=== PATIENT | female | born 1980 | race Caucasian/White ===

== ENCOUNTER 2019-08-08 16:36 | Emergency (ER) | payer SELFPAY ==
--- NOTE | ~2019-08-08 | CT_ITS ---
EXAMINATION: CT abdomen pelvis wo con DATE: 08/08/2019 22:05 INDICATION: Right flank pain. TECHNIQUE: Computed tomography (CT) of the abdomen and pelvis was performed without intravenous contr ast. Automated exposure control and iterative reconstruction technique were employed. The dose-length product was 1217.23 mGy-cm. COMPARISON: None FINDINGS: Normal dependent atelectasis in the right lower lobe. Heart size is normal. No pericardial or pleural effusion. Prominent calcified gallstone at the fundus of the otherwise normal-appearing gallbladder. Liver, spleen, pancreas, bilateral adrenal glands and kidneys are normal. Bowels including the appen castillo are normal. Bladder, anteverted uterus and bilateral adnexa are normal. Small fat-containing umbi lical hernia. Bones are unremarkable. IMPRESSION: 1. Cholelithiasis. Reviewed, dictated and finalized at location A. [facility] IMPRESSION: 1. Cholelithiasis.
[2019-08-08 17:21] VITALS: BP 143/61; PULSE 92; RESP 18; TEMP 37.3; O2SAT 99
[2019-08-08 17:50] LABS: Basophils Percent Auto 0.3 % (0.2-1.2); Eosinophils Absolute Auto 0.2 K/mm3 (0-0.3); Eosinophils Percent Auto 2.4 % (0-4.4); Hematocrit 39.4 % (37.0-47.0); Hemoglobin 12.7 g/dL (12.0-15.0); Immature Granulocyte Absolute 0.02 K/mm3 (0.00-0.031); Immature Granulocyte Percent A 0.3 % (0-0.5); Lymphocytes Absolute Auto 2.12 K/mm3 (0.9-3.2); Lymphocytes Percent Auto 28.1 % (18.3-44.2); Mean Corpuscular HGB Conc 32.2 g/dl (32-36); Mean Corpuscular Hemoglobin 28.5 pg (26-34); Mean Corpuscular Volume 88.5 fl (80-100); Mean Platelet Volume 11.5 fl (7.4-10.4); Monocytes Absolute Auto 0.6 K/mm3 (0.1-0.6); Monocytes Percent Auto 7.3 % (2.6-8.5); Neutrophils Absolute Auto 4.7 K/mm3 (1.3-6.7); Neutrophils Percent Auto 61.6 % (45.5-73.1); Platelet Count Result 182 k/mm3 (150-375); Red Blood Count 4.45 M/mm3 (4.2-5.4); Red Cell Distribution Width 12.9 % (11.5-14.5); White Blood Count 7.6 K/mm3 (4.5-10.0)
[2019-08-08 18:02] LABS: Add Urine Microscopic? YES; Appearance Urine Cloudy (Clear); Bacteria Urine Trace /hpf; Bilirubin Urine Negative (Negative); Blood Urine Negative (Negative); Color Urine Yellow (Yellow); Glucose Urine UA Negative (Negative); Ketones Urine Negative (Negative); Leukocyte Esterase Ur 2+ LEU/UL (Negative); Nitrate Urine Negative (Negative); Protein Urine Negative (Negative); Specific Grav Ur 1.012 (1.001-1.035); Squamous Epithelial Cell Urine Many /hpf (Few); Urobilinogen Urine Negative mg/dL (<2.0)
[2019-08-08 18:05] LABS: Alanine Aminotransferase 20 U/L (4-35); Albumin Level 4.3 g/dL (3.5-5.1); Alkaline Phosphatase 69 U/L (38-126); Aspartate Amino Transferase 22 U/L (14-36); Bilirubin,Total 0.2 mg/dL (0.2-1.3); Blood Urea Nitrogen 15 mg/dL (7-17); Calcium 9.9 mg/dL (8.4-10.2); Carbon Dioxide 26 mmol/L (22-30); Chloride 106 mmol/L (98-107); Estimated CRCL calculation 102 ml/min; Estimated Glomerular Filt Rate > 60; Glucose 103 mg/dL (65-105); Lipase 101 U/L (23-300); Sodium 141 mmol/L (137-145)
[2019-08-08 19:35] VITALS: BP 118/59; PULSE 76; RESP 12; TEMP 36.9; O2SAT 100
--- NOTE | 2019-08-08 20:23 | ED.ABDPAIN ---
HPI - Abdominal Pain General Chief Complaint: Abdominal Pain Stated Complaint: pelvic/hip pain Time Seen by Provider: 08/08/19 20:21 Source: patient Mode of arrival: ambulatory Limitations: no limitations History of Present Illness HPI narrative: A 39 y/o female presents to the ED with c/o right flank pain that radiates to her right abdomen and RLE. Pt describes the radiation into her stomach as a pulling and the radiation into her leg as a shooting sensation. The right flank pain is aggravated with movement. She notes that 4 days ago she was doing housework and lifting a 200lb toolbox when the right flank pain started. Pt denies fever, vomiting, hematuria, and dysuria. She notes a similar pain when she gave years ago. MD elicited complaint: flank pain (Right) Onset (ago): day(s) (4) Pain Consistency: constant Location: R flank Severity: similar to previous episodes Quality: other (Pulling, shooting) Radiation: RUQ, RLQ and other (RLE) Exacerbating factors: movement Context: confirms other (Heavy lifting) Associated symptoms: denies other symptoms Related Data Allergies Allergy/AdvReac Type Severity Reaction Status Date / Time bismuth subsalicylate Allergy Mild Unknown Unverified 08/08/19 20:19 menthol Allergy Mild Unknown Unverified 08/08/19 20:19 Review of Systems Review of Systems: Narrative: CONSTITUTIONAL: Denies fever, chills, or sweats. EYES: Denies visual changes, redness, or discharge. ENT: Denies rhinorrhea, congestion, sore throat, or otalgia. CARDIOVASCULAR: Denies chest pain, palpitations, or edema. RESPIRATORY: Denies cough or dyspnea. GASTROINTESTINAL: Denies nausea, vomiting, or diarrhea. Reports right flank pain that radiates to right abdomen and RLE. GENITOURINARY: Denies dysuria or hematuria, reports some frequency. SKIN: Denies rash or itching. MUSCULOSKELETAL: Denies back pain, joint pain, or myalgia. NEUROLOGIC: Denies headache, numbness, or weakness. All systems reviewed & are unremarkable except as noted in HPI and below PMFSH Past Medical History Medical History (Updated 08/08/19 @ 22:29 by Juanita Matt MD) Anxiety Gall stones Heart attack HTN (hypertension) Migraine Tubal Surgical History Surgical History (Updated 08/08/19 @ 20:51 by Britney Lamb) H/O 3 abortions History of section History of hysterectomy History of removal of cyst Family History Family History Other Depression Family history of mental disorder Social History Social History (Updated 08/08/19 @ 20:54 by Britney Lamb) Smoking packs per day: 5 Smoking cigarettes per day: 100.0 Smoking status: Current every day smoker Alcohol intake: current Gender identity (if verbalized by the patient): Female Exam Narrative: Exam Narrative: GENERAL: Uncomfortable-appearing, well-nourished, and in no acute distress. HEAD: Normocephalic, atraumatic. EYES: PERRLA and EOMI. ENT: Nares clear, no rhinorrhea or epistaxis. Mucous membranes moist. NECK: Supple. CHEST: Clear to auscultation. No respiratory distress. HEART: Regular rate and rhythm. No murmur heard. Normal peripheral pulses. ABDOMEN: Soft, right flank tenderness, nondistended, normal active bowel sounds. + suprapubic tenderness. no rebound or guarding. EXTREMITIES: Normal range of motion. No edema. SKIN: Warm, dry, no rash. NEURO: No focal deficits. Alert and oriented X3. Course Vital Signs Vital signs: Vital Signs Temperature 37.3 C 08/08/19 17:21 Pulse Rate 92 08/08/19 17:21 Respiratory Rate 18 08/08/19 17:21 Blood Pressure 143/61 H 08/08/19 17:21 Pulse Oximetry 99 08/08/19 17:21 Temperature 36.9 C 08/08/19 19:35 Pulse Rate 76 08/08/19 19:35 Respiratory Rate 12 08/08/19 19:35 Blood Pressure 118/59 L 08/08/19 19:35 Pulse Oximetry 100 08/08/19 19:35 MDM - Abdominal Pain MDM Narrative Medical decision making narrative: Patient's abd
[2019-08-08 21:00] VITALS: BP 105/71; PULSE 63; RESP 12; O2SAT 97
[2019-08-08] MEDS: SODIUM CHLORIDE 0.9% IV 1,000 ML 999 ML IV CONT (21:04)
[2019-08-08] MEDS: ONDANSETRON INJ 4 MG/2 ML VIAL IV PUSH (21:05)
[2019-08-08] MEDS: MORPHINE SULFATE 4 MG/ML INJ IV PUSH (21:06)
[2019-08-08 22:47] VITALS: BP 95/53; PULSE 71; RESP 15; O2SAT 97
== END 2019-08-08 22:47 | disposition home or self-care (01) ==
PROVIDERS: Emergency Medicine; Emergency Provider Emergency Medicine
DX: M54.31 Sciatica, right side (principal); N30.00 Acute cystitis without hematuria; I25.2 Old myocardial infarction; I10 Essential (primary) hypertension; F17.210 Nicotine dependence, cigarettes, uncomplicated
CPT/HCPCS: 36415; 74176; 80053; 81001; 81025; 83690; 85025; 87077; 87086; 87088; 96361; 96374; 96375; 99284; J1200; J2270; J2405; J7030

== ENCOUNTER 2020-07-12 19:00 | Emergency (ER) | payer SELFPAY ==
[2020-07-12 19:02] VITALS: BP 153/70; PULSE 92; RESP 14; TEMP 36.4; O2SAT 98
--- NOTE | 2020-07-12 21:19 | ED.EAR ---
HPI - Ear Problem General Chief complaint: Wound/Laceration Stated complaint: facial swelling Time Seen by Provider: 07/12/20 20:59 Source: patient Mode of arrival: ambulatory Limitations: no limitations History of Present Illness HPI Narrative: This patient is a 39 year old female who presents for evaluation left ear pain x 4 weeks. She reports constant pain and tenderness to her left ear. She also reports having a lymph node to left jaw that intermittently enlarges. She states she has to spit out some discharge occasionally when the swelling happens. She denies nausea, vomiting, fever, chills. Related Data Allergies Allergy/AdvReac Type Severity Reaction Status Date / Time bismuth subsalicylate Allergy Mild Unknown Verified 07/12/20 19:23 menthol Allergy Mild Unknown Verified 07/12/20 19:23 Review of Systems Review of Systems: All systems reviewed & are unremarkable except as noted in HPI and below Constitutional: Constitutional: Denies chills and Denies fever(s) Eyes: Eyes: Denies change in vision ENT: Denies dysphagia, Denies nasal congestion and Denies sore throat Cardiovascular: Cardiovascular: Denies chest pain Respiratory: Respiratory: Denies cough and Denies dyspnea PMFSH Past Medical History Medical History Anxiety Gall stones Heart attack HTN (hypertension) Migraine Tubal Surgical History Surgical History H/O 3 abortions History of section History of hysterectomy History of removal of cyst Family History Family History Other Depression Family history of mental disorder Social History Social History (Updated 08/08/19 @ 20:54 by Britney Lamb) Smoking packs per day: 5 Smoking cigarettes per day: 100.0 Smoking status: Current every day smoker Alcohol intake: current Gender identity (if verbalized by the patient): Female Exam Const: General: no acute distress and alert Orientation/consciousness: patient oriented x3 HENMT: Head: normocephalic and atraumatic Ears: TM normal on the right, external ear abnormal auricular tenderness and pain with movement of external ear, periauricular adenopathy and other (unable to visualize whole left TM) Face and sinus: sinuses nontender, face symmetric and other (mild tenderness to left cheek, no significant swelling or redness) Mouth: Yes Normal oral and palatal mucosa present, Yes lip normal, Yes oropharynx normal and Yes moist mucous membranes Throat: posterior oropharynx normal and tonsils normal Eyes: EOM: EOMs intact bilaterally Chest: Chest palpation & inspection: normal inspection of the chest Resp: Effort & Inspection: normal respiratory effort and no retractions Auscultation: clear to auscultation bilaterally Cardio: Rate: regular rate Rhythm: regular rhythm Skin: General skin exam: normal color Rashes: no rashes Neuro: General: patient oriented x3 and moves all extremities Course Reevaluation(s) Reevaluation #1: Patient was given pain medication and antibiotics. Unable to visualize entire TM so will give oral antibiotics as well as otic drops. Date: 07/12/20 Time: 21:33 Vital Signs Vital signs: Vital Signs Temperature 97.5 F L 07/12/20 19:02 Pulse Rate 92 07/12/20 19:02 Respiratory Rate 14 07/12/20 19:02 Blood Pressure 153/70 H 07/12/20 19:02 Pulse Oximetry 98 07/12/20 19:02 Temperature 97.5 F L 07/12/20 19:02 Pulse Rate 74 07/12/20 21:43 Respiratory Rate 18 07/12/20 21:43 Blood Pressure 109/77 07/12/20 21:43 Pulse Oximetry 100 07/12/20 21:43 Medical Decision Making Vital Signs Vital Signs: Vital Signs Temperature 97.5 F L 07/12/20 19:02 Pulse Rate 92 07/12/20 19:02 Respiratory Rate 14 07/12/20 19:02 Blood Pressure 153/70 H 07/12/20 19:02 Pulse Oximetry 98 07/12/20
[2020-07-12] MEDS: ONDANSETRON HCL ODT 4 MG TABLET PO (21:27)
[2020-07-12] MEDS: IBUPROFEN 600 MG TABLET PO (21:30)
[2020-07-12] MEDS: AMOXICILLIN/CLAVULANATE K 875-125 MG TAB 1 TABLET PO (21:31)
[2020-07-12] MEDS: HYDROcodone/acetaminophen (*CRX) 5-325 MG TABLET 1 TAB PO (21:31)
[2020-07-12 21:43] VITALS: BP 109/77; PULSE 74; RESP 18; O2SAT 100
== END 2020-07-12 21:45 | disposition home or self-care (01) ==
PROVIDERS: Emergency Provider General Practice
DX: H60.502 Unspecified acute noninfective otitis externa, left ear (principal); I25.2 Old myocardial infarction; I10 Essential (primary) hypertension; F17.210 Nicotine dependence, cigarettes, uncomplicated
CPT/HCPCS: 99283; A9270

== ENCOUNTER 2020-10-29 13:52 | Emergency (ER) | payer SELFPAY ==
--- NOTE | 2020-10-29 14:12 | ED.CHESTPAIN ---
HPI - Chest Pain General Chief Complaint: Chest Pain Stated Complaint: chest pain Time Seen by Provider: 10/29/20 14:12 Source: patient and RN notes reviewed Mode of arrival: ambulatory Limitations: no limitations History of Present Illness HPI narrative: 40-year-old female presents with acute left-sided chest pain that started after a near syncopal episode while she was cutting grass today. She reports sudden left chest pain, lightheadedness and falling to the ground. She denies loss of consciousness. She denies head injury. She reports she is still experiencing left-sided chest pain, is holding her left chest area. She reports pain is not worsened with arm range of motion or deep breathing. She denies any relieving factors to the pain. She denies shortness of breath, nausea, other pain. Reports she had a mild heart attack 6 years ago, denies any other cardiac history denies hypertension or high cholesterol. Reports she has a 1 pack/day smoker, has decreased from 2 packs/day. MD complaint: chest pain Related Data Allergies Allergy/AdvReac Type Severity Reaction Status Date / Time bismuth subsalicylate Allergy Mild Unknown Verified 07/12/20 19:23 menthol Allergy Mild Unknown Verified 07/12/20 19:23 Review of Systems Review of Systems: Narrative: CONSTITUTIONAL: Denies malaise, chills, sweats, or fever. EYES: Denies visual changes CARDIOVASCULAR: Reports left chest pain. Denies palpitations, or edema. RESPIRATORY: Denies cough or dyspnea. GASTROINTESTINAL: Denies abdominal pain, nausea, vomiting SKIN: Denies redness, bruising MUSCULOSKELETAL: Denies back pain, joint pain, or myalgia. NEUROLOGIC: Denies numbness, weakness, or headache. Reports episode of lightheadedness, falling to the ground All systems reviewed & are unremarkable except as noted in HPI and below PMFSH Past Medical History Medical History Anxiety Gall stones Heart attack HTN (hypertension) Migraine Tubal Surgical History Surgical History H/O 3 abortions History of section History of hysterectomy History of removal of cyst Family History Family History Other Depression Family history of mental disorder Social History Social History (Updated 08/08/19 @ 20:54 by Britney Lamb) Smoking packs per day: 5 Smoking cigarettes per day: 100.0 Smoking status: Current every day smoker Alcohol intake: current Gender identity (if verbalized by the patient): Female Comments At time of signature, agree with nursing past medical, surgical, social and family history. There is no relevant family history pertinent to the presenting complaint Exam Narrative: Exam Narrative: GENERAL: Well-appearing, well-nourished, and in no acute distress. HEAD: Normocephalic, atraumatic. EYES: PERRLA, conjunctivae clear ENT: Nares clear. Mucous membranes moist. NECK: Supple. CHEST: No respiratory distress. Clear to auscultation. No bony deformities, no asymmetry. Speaks in full sentences. HEART: Regular rate and rhythm. No murmur heard. Normal peripheral pulses. SKIN: Warm, dry, no rash. NEURO: Alert and oriented x3. PSYCH: Normal mood and affect Course Course Emergency Course: Patient is aware of, understands and agrees to transfer to emergency department. Patient agrees to EMS transfer. Patient agrees to proceed directly to the emergency department. Portions of this record may have been created with voice recognition software Vital Signs Vital signs: Vital Signs Temperature 97 F L 10/29/20 14:15 Pulse Rate 89 10/29/20 14:15 Respiratory Rate 16 10/29/20 14:15 Blood Pressure 99/64 L 10/29/20 14:15 Pulse Oximetry 98 10/29/20 14:15 Temperature 97 F L 10/29/20 14:15 Pulse Rate 89 10/29/20 14:15 Respiratory Rate 16 10/29/20 14:15 Blood Pressure
--- NOTE | 2020-10-29 14:13 | ECG_ITS ---
Measurements Intervals [place] Rate: 76 P: 31 [place]: 185 QRS: -31 QRSD: 107 T: 48 QT: 384 QTc: 434 Interpretive Statements SINUS RHYTHM LEFT AXIS DEVIATION DELAYED PRECORDIAL R/S TRANSITION BASELINE WANDER- V5 BORDERLINE ECG Electronically Signed On 10-29-2020 15:25:53 CDT by Jaleel Easley D.O.
[2020-10-29 14:15] VITALS: BP 99/64; PULSE 89; RESP 16; TEMP 36.1; O2SAT 98
== END 2020-10-29 14:45 | disposition short-term general hospital (02) ==
PROVIDERS: Emergency Provider Nurse Practitioner
DX: R07.9 Chest pain, unspecified (principal); F17.200 Nicotine dependence, unspecified, uncomplicated; I10 Essential (primary) hypertension; I25.2 Old myocardial infarction
CPT/HCPCS: 93005; 99215; G0463

== ENCOUNTER 2020-10-29 15:09 | Emergency (ER) | payer SELFPAY ==
--- NOTE | ~2020-10-29 | XR_ITS ---
EXAMINATION: XR chest 2V DATE: 10/29/2020 16:48 INDICATION: Left-sided chest pain TECHNIQUE: PA and lateral views of the chest were obtained. COMPARISON: Chest radiograph dated 06/25/[address] dated 02/06/2017 FINDINGS: The lungs remain clear with no focal airspace opacities, pulmonary edema, pleural effusion or pneumot horax. The cardiomediastinal silhouette is normal. Minimal S-shaped curvature of the thoracic spine. IMPRESSION: 1. No acute cardiopulmonary disease. Reviewed, dictated and finalized at location A.
[2020-10-29 15:13] VITALS: BP 108/49; PULSE 76; RESP 28; TEMP 36.1; O2SAT 99
[2020-10-29 15:22] VITALS: PULSE 76
--- NOTE | 2020-10-29 15:40 | ECG_ITS ---
Measurements Intervals [place] Rate: 75 P: 42 [place]: 187 QRS: -21 QRSD: 105 T: 56 QT: 391 QTc: 439 Interpretive Statements SINUS RHYTHM DELAYED PRECORDIAL R/S TRANSITION LOW QRS VOLTAGE IN PRECORDIAL LEADS BASELINE ARTIFACT- II, III, AVR, AVF, V3-V6 BORDERLINE ECG Electronically Signed On 10-29-2020 19:22:34 CDT by Jaleel Easley D.O.
--- NOTE | 2020-10-29 15:52 | ED.CHESTPAIN ---
HPI - Chest Pain General Chief Complaint: Chest Pain Stated Complaint: CP Time Seen by Provider: 10/29/20 15:51 History of Present Illness HPI narrative: 40 yo female w/ no significant medical history presents to the ED for chest pain. She was gardening today when she had sudden onset of sharp left sided chest pain. Intermittent since that time. Worse with arm movement and taking deep breaths. She has been sick with a fever for the past few days, which finally went away today. No SOB, cough, congestion. Related Data Home Medications Medication Instructions Recorded Confirmed No Home Medications 10/29/20 10/29/20 Allergies Allergy/AdvReac Type Severity Reaction Status Date / Time menthol Allergy Mild Unknown Verified 10/29/20 15:23 Review of Systems Review of Systems: All systems reviewed & are unremarkable except as noted in HPI and below Constitutional: Constitutional: Denies chills and Denies fever(s) ENT: Reports system reviewed and no additional complaints, except as documented Cardiovascular: Cardiovascular: Reports as per HPI Respiratory: Respiratory: Denies cough and Denies dyspnea Gastrointestinal: Gastrointestinal: Denies abdominal pain, Denies nausea and Denies vomiting Genitourinary: Genitourinary: Reports no additional female genitourinary complaints Neurologic: Reports system reviewed and no additional complaints, except as documented PMFSH Past Medical History Medical History Anxiety Gall stones Heart attack HTN (hypertension) Migraine Tubal Surgical History Surgical History H/O 3 abortions History of section History of hysterectomy History of removal of cyst Family History Family History Other Depression Family history of mental disorder Social History Social History Smoking packs per day: 5 Smoking cigarettes per day: 100.0 Smoking status: Current every day smoker Alcohol intake: current Gender identity (if verbalized by the patient): Female Exam Const: General: no acute distress and alert Nutritional Appearance: obese Orientation/consciousness: patient oriented x3 HENMT: Head: normal to inspection Neck: Neck: normal visual inspection Chest: Chest palpation & inspection: tenderness costochondral junction (left) Resp: Effort & Inspection: normal respiratory effort Auscultation: clear to auscultation bilaterally Cardio: Rate: regular rate Rhythm: regular rhythm GI: GI Palp: Yes Soft to palpation and No Tenderness to palpation present (GI) (epigastric) Skin: General skin exam: normal color Neuro: General: patient oriented x3, moves all extremities, no focal motor deficits and CN's II-XI intact bilaterally Speech: normal speech Gait exam (Neuro): Normal gait present Extrem: General: normal to inspection Course Vital Signs Vital signs: Vital Signs Temperature 36.1 C L 10/29/20 15:13 Pulse Rate 76 10/29/20 15:13 Respiratory Rate 28 H 10/29/20 15:13 Blood Pressure 108/49 L 10/29/20 15:13 Pulse Oximetry 99 10/29/20 15:13 Temperature 36.1 C L 10/29/20 15:13 Pulse Rate 78 10/29/20 17:24 Respiratory Rate 18 10/29/20 17:24 Blood Pressure 118/75 10/29/20 17:24 Pulse Oximetry 100 10/29/20 17:24 MDM - Chest Pain MDM Narrative Medical decision making narrative: costochondral tenderness. h/o consistent with recent viral infection. Points to costochondritis Medical Records Data Attestation: I reviewed the patient's medical records. Lab Data Attestation: I reviewed the patient's lab results. Imaging Data Radiologist's impression: ITS Impressions Chest X-Ray 10/29/20 16:49 IMPRESSION: 1. No acute cardiopulmonary disease. Discharge Plan Discharge
[2020-10-29] MEDS: KETOROLAC (*BKC) 60 MG/2 ML VIAL IM (17:08)
[2020-10-29 17:24] VITALS: BP 118/75; PULSE 78; RESP 18; O2SAT 100
== END 2020-10-29 17:25 | disposition home or self-care (01) ==
PROVIDERS: Emergency Provider Emergency Medicine
DX: M94.0 Chondrocostal junction syndrome [Tietze] (principal); I25.2 Old myocardial infarction; I10 Essential (primary) hypertension; F17.210 Nicotine dependence, cigarettes, uncomplicated; R94.31 Abnormal electrocardiogram [ECG] [EKG]
CPT/HCPCS: 71046; 93005; 96372; 99283; J1885

== ENCOUNTER 2022-03-04 18:43 | Emergency (ER) | payer SELFPAY ==
[2022-03-04 18:50] VITALS: BP 117/70; PULSE 87; RESP 16; TEMP 39.4; O2SAT 100
[2022-03-04] MEDS: ACETAMINOPHEN 500 MG TABLET 1000 MG PO (19:01)
[2022-03-04 19:42] LABS: Influenza A QL RT-PCR Negative (Negative); Influenza B QL RT-PCR Negative (Negative); SARS-CoV-2 RNA PCR Positive
--- NOTE | 2022-03-04 20:04 | PC.NURSE ---
patient states wait is too long and left prior to being seen
--- NOTE | 2022-03-04 20:18 | PC.NURSE ---
Walked out prior to registration. Not present in wr.
== END 2022-03-04 20:17 | disposition left against medical advice (07) ==
PROVIDERS: Emergency Provider Nurse Practitioner Family
DX: R50.9 Fever, unspecified (principal)
CPT/HCPCS: 87502; 99199; A9270; C9803; U0003; U0005

== ENCOUNTER 2023-07-03 17:07 | Emergency (ER) | payer SELFPAY ==
[2023-07-03] VITALS (22 sets, daily range): BP systolic 106–125; BP diastolic 48–73; PULSE 67–79; RESP 13–22; TEMP 36.4; O2SAT 96–100
--- NOTE | ~2023-07-03 | XR_ITS ---
XR chest 2V DATE: 07/03/2023 17:50 INDICATION: Chest pain TECHNIQUE: 2 views COMPARISON: October 29, 2020 2 view chest FINDINGS: Normal heart size. No hilar or mediastinal enlargement. No pulmonary infiltrate or consolid ation, pleural effusion or pulmonary vascular congestion or pneumothorax is detected. Mild thoracic scoliosis. IMPRESSION: No active cardiopulmonary disease Reviewed, dictated and finalized at location L. [employer]
--- NOTE | 2023-07-03 17:23 | ECG_ITS ---
Measurements Intervals [place] Rate: 80 P: 42 [place]: 190 QRS: -24 QRSD: 101 T: 48 QT: 370 QTc: 429 Interpretive Statements SINUS RHYTHM DELAYED PRECORDIAL R/S TRANSITION BORDERLINE ECG COMPARED TO ECG 10/29/2020 15:19:14 NO SIGNIFICANT CHANGES Electronically Signed On 07-03-2023 17:57:29 SURGICAL INSTRUMENT MAKER by Jaleel Easley D.O.
[2023-07-03 17:40] LABS: Basophils Percent Auto 0.5 % (0.2-1.2); Eosinophils Absolute Auto 0.2 K/mm3 (0-0.3); Eosinophils Percent Auto 2.2 % (0-4.4); Hematocrit 38.6 % (37.0-47.0); Immature Granulocyte Absolute 0.02 K/mm3 (0.00-0.031); Immature Granulocyte Percent A 0.3 % (0-0.5); Lymphocytes Absolute Auto 2.35 K/mm3 (0.9-3.2); Lymphocytes Percent Auto 30.7 % (18.3-44.2); Mean Corpuscular HGB Conc 31.1 g/dl (32-36); Mean Corpuscular Hemoglobin 28.5 pg (26-34); Mean Corpuscular Volume 91.7 fl (80-100); Mean Platelet Volume 10.3 fl (7.4-10.4); Monocytes Absolute Auto 0.7 K/mm3 (0.1-0.6); Monocytes Percent Auto 9.4 % (2.6-8.5); Neutrophils Absolute Auto 4.4 K/mm3 (1.3-6.7); Neutrophils Percent Auto 56.9 % (45.5-73.1); Platelet Count Result 202 k/mm3 (150-375); Red Blood Count 4.21 M/mm3 (4.2-5.4); Red Cell Distribution Width 13.1 % (11.5-14.5); White Blood Count 7.7 K/mm3 (4.5-10.0)
[2023-07-03 17:51] LABS: Alanine Aminotransferase 13 U/L (6-35); Alkaline Phosphatase 79 U/L (38-126); Anion Gap 8 mmol/L (8-16); Aspartate Amino Transferase 16 U/L (14-36); Bilirubin,Total 0.3 mg/dL (0.2-1.3); Blood Urea Nitrogen 19 mg/dL (7-17); Calcium 9.2 mg/dL (8.4-10.2); Carbon Dioxide 25 mmol/L (22-30); Chloride 108 mmol/L (98-107); Estimated CRCL calculation 100 ml/min; Estimated Glomerular Filt Rate > 60; Glucose 94 mg/dL (65-110); Lipase 129 U/L (23-300); Potassium 4.1 mmol/L (3.4-5.0); Sodium 141 mmol/L (137-145)
[2023-07-03 17:52] LABS: Prothrombin Time 13.4 Seconds (11.1-14.7)
[2023-07-03 17:53] LABS: Partial Thromboplastin Time 33.9 SECONDS (22.3-36.8)
[2023-07-03 18:02] LABS: Troponin I < 0.012 ng/mL (0.000-0.034)
--- NOTE | 2023-07-03 21:05 | ED.CHESTPAIN ---
HPI - Chest Pain General Chief Complaint: Chest Pain Stated Complaint: chest pain/muscle spasms Time Seen by Provider: 07/03/23 20:56 History of Present Illness HPI narrative: 42-year-old female with history of hypertension reports for evaluation for chest pain since July 01, 2023. Patient states before the onset of chest pain, she was yelling at her kids and then developed chest pain in her Anterior chest wall. states the pain is worse when she pushes on her chest, otherwise denies aggravating or alleviating factors. States the pain has been constant. She reports shortness of breath at night when the pain is bad, otherwise no dyspnea, cough or congestion. She denies fever, lower extremity edema, calf pain, history of VTE. She is not on hormones, no hemoptysis, no radiating pain. Denies associated diaphoresis, nausea or vomiting. She does smoke 1-2 packs per week for the past 4 months, before then she smokes 5 packs a day for the past 16 years. She Is not established with a PCP. Related Data Allergies Allergy/AdvReac Type Severity Reaction Status Date / Time menthol Allergy Mild Unknown Verified 10/29/20 15:23 Review of Systems Review of Systems: CONSTITUTIONAL: Denies fever, chills, or sweats. EYES: Denies visual changes, redness, or discharge. ENT: Denies rhinorrhea, congestion, sore throat, or otalgia. CARDIOVASCULAR: see HPI RESPIRATORY: Denies cough or dyspnea. GASTROINTESTINAL: Denies abdominal pain, nausea, vomiting, or diarrhea. GENITOURINARY: Denies dysuria or hematuria. SKIN: Denies rash or itching. MUSCULOSKELETAL: Denies back pain, joint pain, or myalgia. NEUROLOGIC: Denies headache, numbness, or weakness. PSYCHIATRIC: Denies anxiety or depression. [facility], [facility] Past Medical History Medical History Anxiety Gall stones Heart attack HTN (hypertension) Migraine Tubal Surgical History Surgical History H/O 3 abortions History of section History of hysterectomy History of removal of cyst Family History Family History Other Depression Family history of mental disorder Social History Social History Smoking packs per day: 5 Smoking cigarettes per day: 100.0 Smoking status: Current every day smoker Alcohol intake: current Gender identity (if verbalized by the patient): Female Exam Narrative: GENERAL: Well-appearing, well-nourished, and in no acute distress. patient resting comfortably in exam bed. She is pleasant and conversational. HEAD: Normocephalic, atraumatic. EYES: PERRLA and EOMI. ENT: Nares clear, no rhinorrhea or epistaxis. Mucous membranes moist. NECK: Supple. CHEST: Clear to auscultation. No respiratory distress. Tenderness to the left sternal border and left anterior chest wall. No overlying skin changes, ecchymosis, crepitus or step-offs. HEART: Regular rate and rhythm. No murmur heard. Normal peripheral pulses. ABDOMEN: Soft, nontender, nondistended, normal active bowel sounds. EXTREMITIES: Normal range of motion. No edema. Negative Homans bilaterally. SKIN: Warm, dry, no rash. NEURO: No focal deficits. Alert and oriented x3 Course Vital Signs Vital signs: Vital Signs Temperature 97.5 F L 07/03/23 17:28 Pulse Rate 79 07/03/23 17:28 Respiratory Rate 20 07/03/23 17:28 Blood Pressure 125/64 07/03/23 17:28 Pulse Oximetry 100 07/03/23 17:28 Oxygen Delivery Room Air 07/03/23 17:28 Temperature 97.5 F L 07/03/23 17:28 Pulse Rate 67 07/03/23 23:33 Respiratory Rate 19 07/03/23 23:33 Blood Pressure 115/67 07/03/23 23:33 Pulse Oximetry 99 07/03/23 23:33 Oxygen Delivery Room Air 07/03/23 21:33 MDM - Chest Pain MDM Narrative Medical decision making narrative: 42-con[age]
--- NOTE | 2023-07-03 21:12 | ECG_ITS ---
Measurements Intervals [place] Rate: 75 P: 45 [place]: 187 QRS: -16 QRSD: 105 T: 57 QT: 373 QTc: 419 Interpretive Statements SINUS RHYTHM DELAYED PRECORDIAL R/S TRANSITION BASELINE WANDER- V2-V3 BORDERLINE ECG COMPARED TO ECG 07/03/2023 17:19:39 NO SIGNIFICANT CHANGES Electronically Signed On 07-04-2023 7:45:12 [employer] TRANSPORT INSPECTOR by Jaleel Easley D.O.
[2023-07-03] MEDS: KETOROLAC 30 MG/ML VIAL (*BKC) IM (21:35)
[2023-07-03] MEDS: CYCLOBENZAPRINE HCL 10 MG TABLET PO (21:35)
[2023-07-03 21:43] LABS: Troponin I < 0.012 ng/mL (0.000-0.034)
[2023-07-03 22:23] LABS: SPREG INTERNAL CONTROL Positive; Serum Qual hCG Positive
== END 2023-07-03 23:35 | disposition home or self-care (01) ==
PROVIDERS: Emergency Medicine; Emergency Provider Physician Assistant
DX: R07.89 Other chest pain (principal); I10 Essential (primary) hypertension; I25.2 Old myocardial infarction; F17.210 Nicotine dependence, cigarettes, uncomplicated
CPT/HCPCS: 36415; 71046; 80053; 83690; 84484; 84702; 84703; 85025; 85610; 85730; 93005; 96372; 99284; A9270; J1885